=== PATIENT | male | born 1970 | race Asian ===

== ENCOUNTER 2023-11-06 20:10 | Emergency (ER) | payer MEDICAID, OTHER ==
[~2023-11-06] VITALS: Ht 167.6 cm; Wt 88.1 kg
[2023-11-06] MEDS: KETOROLAC TROMETH 60MG/2ML VIAL IM ONE (22:32)
[2023-11-06 22:50] VITALS: BP 125/73; PULSE 82; RESP 20; TEMP 98.6; O2SAT 98
[2023-11-07] MEDS ORDERED: IBUP-1455 PO (01:02)
== END 2023-11-07 01:09 | disposition home or self-care (01) ==
LOC: ER 20:10
DX: M47.812 Spondylosis without myelopathy or radiculopathy, cervical region (principal); M47.816 Spondylosis without myelopathy or radiculopathy, lumbar region; M79.18 Myalgia, other site; R51.9 Headache, unspecified; E11.9 Type 2 diabetes mellitus without complications; E78.5 Hyperlipidemia, unspecified
CPT/HCPCS: 72125; 72131; 82962; 96372; 99285; J1885

== ENCOUNTER 2023-11-08 11:53 | Emergency (ER) | payer MEDICAID ==
[~2023-11-08] VITALS: Ht 167.6 cm; Wt 86.8 kg
[~2023-11-08 11:53] MED LIST: IBUP-1455 PO
[2023-11-08] MEDS: HYDROcodone-ACET 5/325MG TAB PO ONE (13:56)
[2023-11-08 14:44] LABS: Basophils # (auto) 0 10 ^3/uL (0-0.2); Basophils % (auto) 0.4 % (0.0-2.0); Eosinophils # (auto) 0 10 ^3/uL (0-0.8); Eosinophils % (auto) 0.4 % (0.0-7.0); Hematocrit 40.6 % (41.0-53.0); Hemoglobin 13.6 g/dL (13.5-17.5); Lymphocytes # (auto) 1.7 10 ^3/uL (0.4-5.4); Lymphocytes % (auto) 23.3 % (10.0-50.0); Mean Corpuscular Hemoglobin 28.7 pg (28.0-32.0); Mean Corpuscular Hgb Conc. 33.5 g/dL (32.0-36.0); Mean Corpuscular Volume 85.7 fL (80.0-100.0); Monocytes # (auto) 0.5 10 ^3/uL (0-1.3); Monocytes % (auto) 6.6 % (0.0-12.0); Neutrophils # (auto) 4.9 10 ^3/uL (1.6-8.6); Neutrophils % (auto) 69.3 % (37.0-80.0); Red Blood Cells 4.73 10^6/uL (4.5-5.90); Red Cell Distribution Width 13.8 % (11.8-14.3); White Blood Cell 7.1 10^3/uL (4.4-10.8)
[2023-11-08 15:07] LABS: Alanine Aminotransferase 11 U/L (7-40); Albumin 4.8 g/dL (3.2-4.8); Alkaline Phosphatase 60 U/L (46-116); Anion Gap 7 (5-15); Aspartate Aminotransferase 17 U/L (13-40); BUN/Creatinine Ratio 16.3 (10.0-20.0); Bilirubin, Total 1.4 mg/dL (0.2-1.0); Blood Urea Nitrogen 13 mg/dL (9-23); Calcium 10.1 mg/dL (8.5-10.1); Carbon Dioxide 27 mmol/L (20-30); Chloride 104 mmol/L (98-107); Glucose 112 mg/dL (74-106); Potassium 3.7 mmol/L (3.5-5.1); Sodium 138 mmol/L (136-145); Total Protein 7.4 g/dL (5.7-8.2)
[2023-11-08 15:19] LABS: Erythrocyte Sedimentation Rate 6 mm/hr (0-20)
[2023-11-08] MEDS: diphenhdrAMINE HCL 50 MG/1 ML VL IV ONE (17:09)
[2023-11-08] MEDS: METOCLOPRAMIDE HCL 5MG/ml INJ 2ml VIAL IV ONE (17:10)
[2023-11-08] MEDS: MAGNESIUM SULFATE 1GM/100ML 100 ML IV ONE (17:10)
[2023-11-08] MEDS: KETOROLAC TROMETH 30 MG/ML 1ML VIAL IV ONE (17:10)
[2023-11-08 18:45] LABS: Urine Bacteria None Seen /hpf (None Seen)
[2023-11-08 19:22] LABS: Urine Blood Negative /uL (Negative); Urine Clarity Clear (Clear); Urine Color Yellow (Yellow); Urine Mucus FEW (None Seen); Urine Protein, UAD TRACE (Negative); Urine Specific Gravity 1.034 (1.001-1.035); Urine Urobilinogen Normal (Negative); Urine WBC 1 /hpf (0 - 3); Urine pH 5.5 (5.0-9.0)
[2023-11-08 20:10] VITALS: BP 110/68; PULSE 83; RESP 17; TEMP 98.5; O2SAT 97
== END 2023-11-08 20:19 | disposition home or self-care (01) ==
LOC: ER 11:53
DX: M54.50 Low back pain, unspecified (principal); R51.9 Headache, unspecified; E78.5 Hyperlipidemia, unspecified
CPT/HCPCS: 36415; 70450; 80053; 81001; 84484; 85025; 85652; 96365; 96375; 99285; J1200; J1885; J2765; J3475